=== PATIENT | female | born 1985 | race Caucasian/White ===

== ENCOUNTER 2018-12-06 00:06 | Emergency (ER) | payer OTHER ==
[~2018-12-06] VITALS: Ht 167.6 cm; Wt 55.8 kg
--- NOTE | 2018-12-06 00:15 | NUR ---
PATIENT WALKED INTO ER C/O INTERMITTEN CP WITH SOB SINCE SINE AM OF 12/05/18. PATIENT UPON ARRIVAL C/O BILATERAL HANDS TINGLING. NO THER COMPLAINT NOTED
[2018-12-06] MEDS ORDERED: ALPRAZOLAM 0.25 MG TABLET PO ONE (00:30)
[2018-12-06] MEDS ORDERED: ALPRAZOLAM 0.5 MG TABLET ONE (00:38)
[2018-12-06 00:44] LABS: *BILIRUBIN,URIN NEGATIVE (NEGATIVE); *CLARITY,URINE CLEAR (CLEAR); *COLOR,URINE YELLOW (YELLOW); *KETONES,URINE TRACE (NEGATIVE); *UROBILINOGEN,URINE 0.2 E.U./dl (NORMAL); LEUKOCYTE ESTERASE ,URINE NEGATIVE (NEGATIVE); NITRITE, URINE NEGATIVE (NEGATIVE); UGLUCOSE NEGATIVE (NEGATIVE)
[2018-12-06 00:49] LABS: *BLOOD, URINE TRACE (NEGATIVE)
[2018-12-06 00:50] LABS: BACTERIA,URINE NONE SEEN /HPF (NONE SEEN); RBC,URINE 0-3 /HPF (0-3); SQUAMOUS EPITHELIAL CELL,UR FEW /HPF (NONE SEEN); WBC,URINE 0-3 /HPF (0-3)
[2018-12-06 00:51] LABS: *URINE HCG, QUAL NEGATIVE (NEGATIVE)
--- NOTE | 2018-12-06 01:10 | NUR ---
PATIENT STATING "I FEEL BETTER."
--- NOTE | 2018-12-06 01:19 | NUR ---
Patient discharged to home in stable conditon WITH FAMILY TAKING PATIENT HOME. Written and verbal after care instructions given. Patient verbalizes understanding of instructions. WALKED OUT OF ER WITH NO DISTRESS NOTED
[2018-12-06 01:20] VITALS: BP 128/74
== END 2018-12-06 01:21 | disposition home or self-care (01) ==
LOC: ER 00:12
DX: F41.9 Anxiety disorder, unspecified (principal); F43.0 Acute stress reaction
CPT/HCPCS: 84703; 93005; A4663